=== PATIENT | female | born 1975 | race Caucasian/White ===

== ENCOUNTER → 2017-01-03 | Outpatient (CLI) | payer OTHER ==
[~2017-01-03] MED LIST: MOTRIN 400MG.400 MG PO; PRENATAL VITAMI1 TAB PO; PRENATAL1 TA2 OR
[2017-01-03 07:58] LABS: LYMPH # 1.6 K/mm3 (0.7-4.5); LYMPH % 33.2 % (10-50.0)
[2017-01-03 08:02] LABS: HEMOGLOBIN 13.3 g/dL (12.2-16.2)
[2017-01-03 09:53] LABS: BUN 13 mg/dL (7-18)
[2017-01-03 09:54] LABS: GFR (ESTIMATED) 135 ML/MIN (59-)
== END ==
LOC: LAB 07:48
PROVIDERS: Nurse Practitioner Obstetrics & Gynecology
DX: Z01.419 Encounter for gynecological examination (general) (routine) without abnormal findings (principal); R53.82 Chronic fatigue, unspecified